=== PATIENT | female | born 1995 ===

== ENCOUNTER 2018-05-04 01:49 | Emergency (ER) | payer OTHER ==
[2018-05-04 02:00] VITALS: TEMP 98.4
[2018-05-04 03:07] VITALS: BP 113/61; PULSE 86; RESP 22; O2SAT 98
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
--- NOTE | 2018-05-08 22:52 | CARD ---
APPROVED REPORT EKG Measurement Heart [id number] MA [id number] [id number] <Conclusion> Normal sinus rhythm Possible Left atrial enlargement Cannot rule out Anterior infarct, age undetermined Abnormal ECG
== END 2018-05-04 03:48 | disposition home or self-care (01) ==
LOC: C.ER 01:49
DX: F41.1 Generalized anxiety disorder (principal); R00.2 Palpitations